=== PATIENT | female | born 1990 | race Hispanic/Latino ===

== ENCOUNTER 2024-07-17 06:03 | Emergency (ER) | payer OTHER, SELFPAY ==
--- OUTSIDE RECORDS SUMMARY | 2024-07-17 06:07 | XMS REPORT | Continuity of Care Document ---
Author Name Unknown Address [address] [facility] [address] [place] [address] [facility] [place] Address [address] [facility] [address] [place] [address] Care Team Providers Care Dolly Pusher Name Role Phone PCP, PATIENT DOES NOT HAVE A Primary Care Physic mike Unavailable REBEKAH OLIVEIRA Attending Clinician Unavailab MERRILL Tesfaye Attending Clinician Unavailable Nurse, [facility] Attending Clinician Un available Unknown, Attending Attending Clinician Unavailab le Doctor Unassigned, Turner Attending Clinician U CHAR Prescott Attending Clinician Unavail able Char Craft Attending Clinician + Payers Payer Name Policy Type Policy Number Effective Date Expirati on Date Source [facility] 2 [id number] 2024 00:00:00 [facility] [id number] 2022 00:00:00 Problems Condition Name Condition Details Condition Category Status Onset Date Resolution Date Last Treatment Date Treating Clinician Comments Source Presence of intrauteri ne contracept marjorie device Presence of intrauteri ne contracept marjorie device Disease Active 09-16 00:00: 00 [facility] Other general counseling and advice for contracept marjorie management Other general counseling and advice for contracept marjorie management Disease Active 09-16 00:00: 00 [facility] Presence of intrauteri ne contracept marjorie device Presence of intrauteri ne contracept marjorie device Disease Active 09-16 00:00: 00 [facility] Over weight Over weight Disease Active 09-16 00:00: 00 [facility] Allergies, Adverse Reactions, Alerts Allergy Name Allergy Type Status Severity Reaction(s) Onset Date Inactive Date Treating Clinician Comments Source NO KNOWN ALLERGIE S Drug Class Active [facility] Social History Social Habit Start Date Stop Date Quantity Comments Source History SDOH Alcohol Frequency [facility] History SDOH Alcohol Std Drinks [facility] History SDOH Alcohol Binge [facility] to SARS-CoV-2 (event) Not sure [facility] Alcohol intake 2020-09-23 00:00:00 2020-09-23 00:00:00 Current drinker of alcohol (finding) [facility] History of Social function 2020-09-16 00:00:00 2020-09-16 00:00:00 [facility] Tobacco use and exposure 2020-09-16 00:00:00 2020-09-16 00:00:00 Smokeless tobacco non-user [facility] Alcohol Comment 2020-09-16 00:00:00 2020-09-16 00:00:00 social [facility] Sex Assigned At 1990 00:00:00 1990 00:00:00 [facility] Smoking Status Start Date Stop Date Source Never smoked tobacco [facility] Medications Ordered Medication Name Filled Medication Name Start Date Stop Date Current Medication? Ordering Clinician Indication Dosage Frequency Signature (SIG) Comments Components Source phenazopyri dine 200 mg tablet 06-24 00:00: 00 Yes 1mg Garrywaqar Cross nitrofurant oin monohydrate /macrocryst als 100 mg capsule 06-24 00:00: 00 Yes 1mg Garry Cross Bromfed DM 2 mg-30 mg-10 mg/5 mL oral syrup 9-03 00:00: 00 Yes 10mg/5 mL Garry Cross Bromfed DM 2 mg-30 mg-10 mg/5 mL oral syrup 2024-0 8-30 00:00: 00 Yes 10mg/5 mL Garry Cross sertraline 25 mg tablet 6-26 00:00: 00 Yes 1mg Garry Cross Celexa 10 mg tablet 6-17 00:00: 00 Yes 1mg Garry Cross fluoxetine 40 mg capsule 5-01 00:00: 00 Yes 2mg Garry Cross fluoxetine 40 mg capsule 3-05 00:00: 00 Yes mg Garry Cross FLUOXETINE HCL 40 MG CAPSULE 2-27 00:00: 00 Yes Garry Cross TAKE 1 CAP DAILY WITH A 40 CAPSULE 1-22 00:00: 00 09-10 00:00 :00 No 20 Garry Cross TAKE 2 TABLETS ON DAY 1 THEN TAKE 1 TABLET A DAY FOR 4 DAYS. 1- 00:00: 00 09-10 00:00 :00 No 250 Garry rCoss FLUOXETINE HYDROCHLORI DE 40 MG 2022-05 2-12 00:00: 00 Yes Garry Cross TAKE 1 CAP DAILY WITH A 40 CAPSULE 2022-05 00:00: 00 09-10 00:00 :00 No 20 Garry Cross TAKE 1 TABLET FOR MIGRAINE RELIEF. MAY REPEAT EVERY 2 HOURS. MAX 200MG/DAY. 2022-05 00:00: 00 09-10 00:00 :00 No 50 Garry Cross TAKE 1 TABLET DAILY. 2022-05 00:00: 00 09-10 00:00 :00 No 10 Garry Cross TAKE 1 CAPSULE BY MOUTH ONCE DAILY 2022-05 0-20 00:00: 00 09-10 00:00 :00 No 40 Garry Cross TAKE 1 CAPSULE 3 TIMES DAILY NEEDED FOR ANXIETY. 2022-05 0-20 00:00: 00 09-10 00:00 :00 No 25 Garry Cross MOUNJARO 2.5 MG/0.5 ML PEN 9-18 00:00: 00 Yes Garry Cross MOUNJARO 2.5 MG/0.5ML SOPN 8-16 00:00: 00 Yes Garry Cross TAKE 1 CAPSULE BY MOUTH ONCE DAILY 11-29 00:00: 00 09-10 00:00 :00 No 40 Garry Cross TAKE 1 CAPSULE 3 TIMES DAILY NEEDED FOR ANXIETY. 11-29 00:00: 00 09-10 00:00 :00 No 25 Garry Cross TAKE 1 CAPSULE EVERY MORNING. 3 00:00: 00 09-10 00:00 :00 No 20 Garry Cross TAKE 1 CAPSULE EVERY MORNING. 3 00:00: 00 09-10 00:00 :00 No 20 Garry Cross TAKE 1 CAPSULE 3 TIMES DAILY NEEDED FOR ANXIETY. 07-07 00:00: 00 09-10 00:00 :00 No 25 Garry Cross TAKE 1 TABLET DAILY. 06-01 00:00: 00 09-10 00:00 :00 No 10 Garry Cross LEVONORGEST REL (MIRENA INTRAUTERIN E) 09-16 14:29: 27 Yes by Intrauteri ne route. [facility] LEVONORGEST REL (MIRENA INTRAUTERIN E) 09-16 09:29: 27 Yes by Intrauteri ne route. [facility] naproxen (NAPROSYN) 500 mg tablet 2015-05 00:00: 00 Yes 500mg Take 1 tablet by mouth 2 (two) times daily with meals. [facility] cyclobenzap rine (FLEXERIL) 10 mg tablet 2015-05 00:00: 00 Yes 10mg Take 1 tablet by mouth as needed for Muscle Spasms (AND PAIN TO MAX OF TID). [facility] acetaminoph en-codeine (TYLENOL #3) 300-30 mg tablet 2015-05 00:00: 00 Yes 1{tbl} Take 1 tablet by mouth every 4 (four) hours as needed for Pain unrelieved by non-narcot ic analgesics . [facility] naproxen sodium (ANAPROX) 550 mg tablet 02-04 00:00: 00 Yes 550mg Take 1 tablet by mouth 2 (two) times daily with meals. [facility] cyclobenzap rine (FLEXERIL) 5 mg tablet 02-04 00:00: 00 Yes 5mg Take 1 tablet by mouth 3 (three) times daily. [facility] cyclobenzap rine (FLEXERIL) 5 mg tablet 11-26 00:00: 00 Yes 5mg Take 1 tablet by mouth 3 (three) times daily. [facility] ranitidine (ZANTAC) 150 mg tablet 2014-05 00:00: 00 Yes 150mg Take 1 Tab by mouth 2 (two) times daily. [facility] Immunizations Ordered Immunization Name Filled Immunization Name Date Status Comments Source TDAP 2011-05-08 00:00:00 Completed [facility] TDAP 2011-05-08 00:00:00 Completed [facility] TDAP 2011-05-08 00:00:00 Completed [facility] TDAP 2011-05-08 00:00:00 Completed [facility] Rubella 2009-07-08 00:00:00 Completed [facility] Rubella 2009-07-08 00:00:00 Completed [facility] Rubella 2009-07-08 00:00:00 Completed [facility] Rubella 2009-07-08 00:00:00 Completed [facility] Rubella Unknown Completed [facility] TDAP Unknown Completed [facility] Rubella Unknown Completed [facility] TDAP Unknown Completed [facility] Vital Signs Vital Name Observation Time Observation Value Comments S braulio Systolic blood pressure 2023-03-05 16:58:00 124 mm[Hg] [facility] Diastolic blood pressure 2023-03-05 16:58:00 83 mm[Hg] [facility] Heart rate 2023-03-05 16:58:00 82 /min [facility] Body temperature 2023-03-05 16:58:00 36.83 Zita [facility] Respiratory rate 2023-03-05 16:58:00 15 /min [facility] Body height 2023-03-05 16:58:00 157.5 cm [facility] Body weight 2023-03-05 16:58:00 67.586 kg [facility] BMI 2023-03-05 16:58:00 27.25 kg/m2 [facility] Oxygen saturation in Arterial blood by Pulse oximetry 2023-03-05 16:58:00 99 /min [facility] Systolic blood pressure 2020-09-23 18:47:00 117 mm[Hg] [facility] Diastolic blood pressure 2020-09-23 18:47:00 78 mm[Hg] [facility] Heart rate 2020-09-23 18:47:00 97 /min [facility] Body temperature 2020-09-23 18:47:00 36.94 Zita [facility] Respiratory rate 2020-09-23 18:47:00 16 /min [facility] Body height 2020-09-23 18:47:00 152.4 cm [facility] Body weight 2020-09-23 18:47:00 68.238 kg [facility] BMI 2020-09-23 18:47:00 29.38 kg/m2 [facility] Systolic blood pressure 2020-09-16 14:19:00 124 mm[Hg] [facility] Diastolic blood pressure 2020-09-16 14:19:00 87 mm[Hg] [facility] Heart rate 2020-09-16 14:19:00 95 /min [facility] Body temperature 2020-09-16 14:19:00 36.94 Zita [facility] Respiratory rate 2020-09-16 14:19:00 16 /min [facility] Body height 2020-09-16 14:19:00 152.4 cm [facility] Body weight 2020-09-16 14:19:00 68.607 kg [facility] BMI 2020-09-16 14:19:00 29.54 kg/m2 [facility] BP Systolic 2024-06-24 11:31:00 128 mm[Hg] Step hen F Tay BP Diastolic 2024-06-24 11:31:00 88 mm[Hg] Dandy phen F Tay Weight Measured 2024-06-24 11:31:00 167.00 pounds Garry F Tay Height Measured 2024-06-24 11:31:00 60.00 inches Garry F Tay Body Temperature 2024-06-24 11:31:00 98.00 degrees Garry F Tay Heart Rate 2024-06-24 11:31:00 86.00 /min Yesi en F Tay Respiratory Rate 2024-06-24 11:31:00 18.00 /min Garry F Tay BP Systolic 2023-07-04 17:24:00 Step hen F Tay BP Diastolic 2023-07-04 17:24:00 Dandy phen F Tay Weight Measured 2023-07-04 17:24:00 Garry F Tay Height Measured 2023-07-04 17:24:00 Garry F Tay Body Temperature 2023-07-04 17:24:00 Garry F Tay Heart Rate 2023-07-04 17:24:00 Yesi en F Tay Respiratory Rate 2023-07-04 17:24:00 Garry F Tay BP Systolic 2023-07-01 13:43:00 145 mm[Hg] Step hen F Tay BP Diastolic 2023-07-01 13:43:00 99 mm[Hg] Dandy phen F Tay Weight Measured 2023-07-01 13:43:00 156.60 pounds Garry F Tay Height Measured 2023-07-01 13:43:00 60.00 inches Garry F Tay Body Temperature 2023-07-01 13:43:00 98.20 degrees Garry F Tay Heart Rate 2023-07-01 13:43:00 99.00 /min Yesi en F Tay Respiratory Rate 2023-07-01 13:43:00 20.00 /min Garry F Tay BP Systolic 2023-06-06 16:32:00 130 mm[Hg] Step hen F Tay BP Diastolic 2023-06-06 16:32:00 88 mm[Hg] Dandy phen F Tay Weight Measured 2023-06-06 16:32:00 155.00 pounds Garry F Tay Height Measured 2023-06-06 16:32:00 60.00 inches Garry F Tay Body Temperature 2023-06-06 16:32:00 98.20 degrees Garry F Tay Heart Rate 2023-06-06 16:32:00 77.00 /min Yesi en F Tay Respiratory Rate 2023-06-06 16:32:00 18.00 /min Garry F Tay BP Systolic 2023-05-29 18:19:00 Step hen F Tay BP Diastolic 2023-05-29 18:19:00 Dandy phen F Tay Weight Measured 2023-05-29 18:19:00 151.20 pounds Garry F Tay Height Measured 2023-05-29 18:19:00 60.00 inches Garry F Tay Body Temperature 2023-05-29 18:19:00 Garry F Tay Heart Rate 2023-05-29 18:19:00 Yesi en F Tay Respiratory Rate 2023-05-29 18:19:00 Garry F Tay BP Systolic 2023-05-09 16:33:00 114 mm[Hg] Step hen F Tay BP Diastolic 2023-05-09 16:33:00 77 mm[Hg] Dandy phen F Tay Weight Measured 2023-05-09 16:33:00 151.20 pounds Garry F Tay Height Measured 2023-05-09 16:33:00 60.00 inches Garry F Tay Body Temperature 2023-05-09 16:33:00 96.80 degrees Garry F Tay Heart Rate 2023-05-09 16:33:00 93.00 /min Yesi en F Tay Respiratory Rate 2023-05-09 16:33:00 Garry F Tay BP Systolic 2023-03-08 09:58:00 134 mm[Hg] Step hen F Tay BP Diastolic 2023-03-08 09:58:00 86 mm[Hg] Dandy phen F Tay Weight Measured 2023-03-08 09:58:00 151.00 pounds Garry F Tay Height Measured 2023-03-08 09:58:00 60.00 inches Garry F Tay Body Temperature 2023-03-08 09:58:00 98.20 degrees Garry F Tay Heart Rate 2023-03-08 09:58:00 80.00 /min Yesi en F Tay Respiratory Rate 2023-03-08 09:58:00 17.00 /min Garry F Tay BP Systolic 2023-02-24 18:17:00 Step hen F Tay BP Diastolic 2023-02-24 18:17:00 Dandy phen F Tay Weight Measured 2023-02-24 18:17:00 Garry Cross Height Measured 2023-02-24 18:17:00 Garry Cross Body Temperature 2023-02-24 18:17:00 Garry Cross Heart Rate 2023-02-24 18:17:00 Yesi Cross Respiratory Rate 2023-02-24 18:17:00 Garry Cross Procedures Procedure Date / Time Performed Performing Clinicia n Source ASSIGNMENT OF BENEFITS 2023-03-05 16:01:16 Docto r Unassigned, Turner [facility] [address] Ekg W/ At Least 12 Leads W/ I r 2022-06-01 00:00:00 Garry Cross POCT TEST 2020-09-16 14:22:00 Daniel Brewer [facility] Encounters Start Date/Time End Date/Time Encounter Type Admission Type Attending Rust Care Department Encounter ID Source 2024-06-24 11:20:34 2024-06-24 11:20:34 Outpatient SFA SFA [id number] Garry Cross 2024-06-24 00:00:00 2024-06-24 00:00:00 Outpatient Visit SFA [id number] Garry Cross 2024-02-07 11:00:00 2024-02-07 11:00:00 Outpatient REBEKAH OLIVEIRA [id number] Isabel Keyes 2024-01-09 00:00:00 2024-01-09 00:00:00 Outpatient Visit SFA [id number] Garry Cross 2024-01-06 11:07:40 2024-01-06 11:07:40 Outpatient SFA SFA [id number] Garry Cross 2024-01-05 20:35:49 2024-01-05 20:35:49 Outpatient SFA SFA [id number] Garry Cross 2024-01-05 00:00:00 2024-01-05 00:00:00 Outpatient Visit SFA [id number] Garry Cross 2023-11-01 14:14:17 2023-11-01 14:14:17 Outpatient SFA SFA [id number] Garry Cross 2023-10-23 00:00:00 2023-10-23 00:00:00 Outpatient Visit SFA [id number] Garry Cross 2023-09-06 14:13:23 2023-09-06 14:13:23 Outpatient SFA SFA [id number] Garry Cross 2023-09-06 00:00:00 2023-09-06 00:00:00 Outpatient Visit SFA [id number] Garry Cross 2023-07-04 17:23:54 2023-07-04 17:23:54 Outpatient SFA [id number] [id number] Garry Cross 2023-07-04 00:00:00 2023-07-04 00:00:00 Outpatient Visit SFA [id number] Garry Cross 2023-07-01 13:33:30 2023-07-01 13:33:30 Outpatient SFA SFA [id number] Garry Cross 2023-06-06 16:18:25 2023-06-06 16:18:25 Outpatient SFA SFA [id number] Garry Cross 2023-05-09 16:26:16 2023-05-09 16:26:16 Outpatient SFA SFA [id number] Garry Cross 2023-03-08 09:52:30 2023-03-08 09:52:30 Outpatient SFA SFA [id number] Garry Cross 2023-03-05 11:00:00 2023-03-05 11:20:41 Outpatient MERRILL ATWOOD [facility] [id number] [facility] 2023-03-05 11:00:00 2023-03-05 11:20:41 Nurse Visit Nurse, Srinivas [facility] Unknown, Attending [facility] [id number] [id number] [facility] 2023-03-05 00:00:00 2023-03-05 00:00:00 Orders Only Doctor Unassigned, Turner [facility] 1..114 [id number] [facility] 2023-02-24 18:16:58 2023-02-24 18:16:58 Outpatient SFA [facility] [id number] Garry Cross 2022-11-29 09:00:23 2022-11-29 09:00:23 Outpatient SFA [facility] [id number] Garry Cross 2022-10-11 14:45:00 2022-10-11 14:45:00 Outpatient R CHAR BREWER [facility] [id number] [facility] 2021-02-17 00:00:00 2021-02-17 00:00:[address] [facility] CONCRETING SUPERVISOR [email or web address]] .840.114 [id number] [facility] 2020-09-30 00:00:00 2020-09-30 00:00:00 Outpatient R CHAR BREWER [facility] [id number] [facility] 2020-09-28 13:15:00 2020-09-28 13:15:00 Outpatient R [facility] [id number] [facility] 2020-09-24 00:00:00 2020-09-24 00:00:00 Telephone Char Brewer [facility] CONCRETING SUPERVISOR [facility] [[email or web address]] .840.114 [id number] [facility] 2020-09-23 13:31:23 2020-09-23 14:46:46 Office Visit Char Brewer [facility] CONCRETING SUPERVISOR [facility] [[email or web address]] [id number] [facility] 2020-09-23 13:30:00 2020-09-23 13:30:00 Outpatient R CHAR BREWER [facility] [id number] [facility] 2020-09-16 09:12:50 2020-09-16 10:30:38 Office Visit Char Brewer [facility] CONCRETING SUPERVISOR [facility] [id number] [facility] 2020-09-16 09:00:00 2020-09-16 09:00:00 Outpatient R CHAR BREWER [facility] [id number] [facility] Results Test Description Test Time Test Comments Results Result Co mments Source TSH, THIRD [id number] 06:45:41* Test Item Value Reference Range Interpretation Comme [facility] TSH, THIRD GENERATION (test code = 2821) 1.590 UIU/ML 0.400-4.100 LIPID [id number] 06:15:21* Test Item Value Reference Range Interpretation Comme nts CHOLESTEROL (test code = 2210) 207 MG/DL <200 H TRIGLYCERIDES (test code = 2232) 110 MG/DL <150 HDL CHOLESTEROL (test code = 2220) 56 MG/DL >39 CALC LDL CHOL (test code = 2237) 129 MG/DL <100 H NOTE: CALCULATED LDL IS BASED ON CASTILLO-NG METHOD WHICHINCLUDES ADJUSTABLE TRIGLYCERIDE:VLDL CHOLESTEROL RATIO.THIS FACTOR VARIES BY MEASURED TRIGLYCERIDE AND NON-HDLCHOLESTEROL CONCENTRATIONS WITH INCREASED CALCULATED LDL SEENIN HIGHER TRIGLYCERIDE OR LOWER NON-HDL SPECIMENS. FOR MOREINFORMATION, SEE CLIENT ANNOUNCEMENT AT [email or web address] RISK RATIO LDL/HDL (test code = 223) 2.30 RATIO <3.22 COMPREHENSIVE METABOLIC [id number] 06:15:21* Test Item Value Reference Range Interpretation Comme nts GLUCOSE (test code = 2216) 96 MG/DL 70-99 BUN (test code = 2207) 9 MG/DL 6-20 CREATININE (test code = 2213) 0.67 MG/DL 0.60-1.30 eGFR (2020 CKD-EPI) (test code = ) 118 ML/MIN/1.73 >60 CALC BUN/CREAT (test code = 2234) 13 RATIO 6-28 SODIUM (test code = 2230) 138 MEQ/L 133-146 POTASSIUM (test code = 2227) 4.5 MEQ/L 3.5-5.4 CHLORIDE (test code = 2214) 100 MEQ/L 95-107 CARBON DIOXIDE (test code = 2205) 26 MEQ/L 19-31 CALCIUM (test code = 2208) 10.0 MG/DL 8.5-10.5 PROTEIN, TOTAL (test code = 2228) 7.6 G/DL 6.1-8.3 ALBUMIN (test code = 2200) 4.8 G/DL 3.5-5.2 CALC GLOBULIN (test code = 2240) 2.8 G/DL 1.9-3.7 CALC A/G RATIO (test code = 2233) 1.7 RATIO 1.0-2.6 BILIRUBIN, TOTAL (test code = 2206) 0.5 MG/DL <=1.2 ALKALINE PHOSPHATASE (test code = 2203) 77 U/L 40-114 AST (test code = 8) 24 U/L 9-40 ALT (test code = 2219) 24 U/L 5-40 CBC W/AUTO DIFF WITH [id number] 04:27:42* Test Item Value Reference Range Interpretation Comme nts WBC (test code = 1001) 7.3 K/UL 3.5-11.0 RBC (test code = 1002) 5.28 M/UL 3.80-5.40 HEMOGLOBIN (test code = 1003) 15.2 G/DL 11.5-15.5 HEMATOCRIT (test code = 1004) 46.4 % 34.0-45.0 H MCV (test code = 1005) 87.9 fL 80.0-99.0 MCH (test code = 1006) 28.8 PG 25.0-33.0 MCHC (test code = 1007) 32.8 G/DL 31.0-36.0 RDW (test code = 1038) 12.9 % 11.5-15.0 NEUTROPHILS (test code = 1008) 63.7 % LYMPHOCYTES (test code = 1010) 25.9 % MONOCYTES (test code = 1011) 8.2 % EOSINOPHILS (test code = 1012) 1.2 % BASOPHILS (test code = 1013) 0.7 % IMMATURE GRANULOCYTES (test code = 1036) 0.3 % NUCLEATED RBCS (test code = 1065) 0.0 /100 WBC'S See_Comment [Automated messa ge] The system which generated this result transmitted reference range: 0.0. The reference range was not used to interpret this result as normal/abnormal. PLATELET COUNT (test code = 1015) 404 K/UL 130-400 H ABSOLUTE NEUTROPHILS (test code = 1066) 4.66 K/UL 1.50-7.50 ABSOLUTE LYMPHOCYTES (test code = 1067) 1.89 K/UL 1.00-4.00 ABSOLUTE MONOCYTES (test code = 1068) 0.60 K/UL 0.20-1.00 ABSOLUTE EOSINOPHILS (test code = 1040) 0.09 K/UL 0.00-0.50 ABSOLUTE BASOPHILS (test code = 1069) 0.05 K/UL 0.00-0.20 ABS IMMATURE GRANULOCYTES (test code = 1020) 0.02 K/UL 0.00-0.10 ABS NUCLEATED RBCS (test code = 38886) 0.00 K/UL 0.00-0.11 LIPID [id number] 00:00:00* Test Item Value Reference Range Interpretation Comme nts CHOLESTEROL (test code = 2210) 207 MG/DL TRIGLYCERIDES (test code = 2232) 110 MG/DL HDL CHOLESTEROL (test code = 2220) 56 MG/DL CALC LDL CHOL (test code = 2237) 129 MG/DL RISK RATIO LDL/HDL (test cod e = 2238) 2.30 RATIO Garry F TayCOMPREHENSIVE METABOLIC [id number] 00:00:00* Test Item Value Reference Range Interpretation Comme nts GLUCOSE (test code = 2217) 96 MG/DL BUN (test code = 2207) 9 MG/DL CREATININE (test code = 2214) 0.67 MG/DL eGFR (2020 CKD-EPI) (test code = ) 118 ML/MIN/1.73 CALC BUN/CREAT (test code = 2235) 13 RATIO SODIUM (test code = 223) 138 MEQ/L POTASSIUM (test code = 2228) 4.5 MEQ/L CHLORIDE (test code = 2215) 100 MEQ/L CARBON DIOXIDE (test code = 2206) 26 MEQ/L CALCIUM (test code = 2209) 10.0 MG/DL PROTEIN, TOTAL (test code = 2228) 7.6 G/DL ALBUMIN (test code = 220) 4.8 G/DL CALC GLOBULIN (test code = 2240) 2.8 G/DL CALC A/G RATIO (test code = 2234) 1.7 RATIO BILIRUBIN, TOTAL (test code = 2206) 0.5 MG/DL ALKALINE PHOSPHATASE (test code = 2203) 77 U/L AST (test code = 8) 24 U/L ALT (test code = 2219) 24 U/L Garry CrossTSH, THIRD [id number] 00:00:00* Test Item Value Reference Range Interpretation Comme [facility] TSH, THIRD GENERATION (test code = 2821) 1.590 UIU/ML Garry Andrew TayVITAMIN D, 25 [id number] 00:00:00* Test Item Value Reference Range Interpretation Comme [facility] VITAMIN D, 25 OH (test code = 4958) 19 NG/ML Garry Morales TayCBC W/AUTO [id number] 00:00:00* Test Item Value Reference Range Interpretation Comme nts WBC (test code = 1001) 7.3 K/UL RBC (test code = 1002) 5.28 M/UL HEMOGLOBIN (test code = 1003) 15.2 G/DL HEMATOCRIT (test code = 1004) 46.4 % MCV (test code = 1005) 87.9 fL MCH (test code = 1006) 28.8 PG MCHC (test code = 1007) 32.8 G/DL RDW (test code = 1038) 12.9 % NEUTROPHILS (test code = 1008) 63.7 % LYMPHOCYTES (test code = 1010) 25.9 % MONOCYTES (test code = 1011) 8.2 % EOSINOPHILS (test code = 1012) 1.2 % BASOPHILS (test code = 1013) 0.7 % IMMATURE GRANULOCYTES (test code = 1036) 0.3 % NUCLEATED RBCS (test code = 1065) 0.0 /100WBC'S PLATELET COUNT (test code = 1015) 404 K/UL ABSOLUTE NEUTROPHILS (test c ode = 1066) 4.66 K/UL ABSOLUTE LYMPHOCYTES (test c ode = 1067) 1.89 K/UL ABSOLUTE MONOCYTES (test cod e = 1068) 0.60 K/UL ABSOLUTE EOSINOPHILS (test c ode = 1040) 0.09 K/UL ABSOLUTE BASOPHILS (test cod e = 1069) 0.05 K/UL ABS IMMATURE GRANULOCYTES (t est code = 1020) 0.02 K/UL ABS NUCLEATED RBCS (test cod e = 64658) 0.00 K/UL Garry Morales [place] [id number] 00:00:00* Test Item Value Reference Range Interpretation Comme nts CHOLESTEROL (test code = 2210) 207 MG/DL TRIGLYCERIDES (test code = 2232) 110 MG/DL HDL CHOLESTEROL (test code = 2220) 56 MG/DL CALC LDL CHOL (test code = 2237) 129 MG/DL RISK RATIO LDL/HDL (test cod e = 2238) 2.30 RATIO Garry CrossCOMPREHENSIVE METABOLIC [id number] 00:00:00* Test Item Value Reference Range Interpretation Comme nts GLUCOSE (test code = 2217) 96 MG/DL BUN (test code = 2208) 9 MG/DL CREATININE (test code = 2214) 0.67 MG/DL eGFR (2020 CKD-EPI) (test code = 36073) 118 ML/MIN/1.73 CALC BUN/CREAT (test code = 2235) 13 RATIO SODIUM (test code = 2231) 138 MEQ/L POTASSIUM (test code = 2228) 4.5 MEQ/L CHLORIDE (test code = 2215) 100 MEQ/L CARBON DIOXIDE (test code = 2206) 26 MEQ/L CALCIUM (test code = 2209) 10.0 MG/DL PROTEIN, TOTAL (test code = 2229) 7.6 G/DL ALBUMIN (test code = 2201) 4.8 G/DL CALC GLOBULIN (test code = 2240) 2.8 G/DL CALC A/G RATIO (test code = 2234) 1.7 RATIO BILIRUBIN, TOTAL (test code = 2207) 0.5 MG/DL ALKALINE PHOSPHATASE (test code = 2204) 77 U/L AST (test code = 2218) 24 U/L ALT (test code = 2219) 24 U/L Garry CrossTSH, THIRD [id number] 00:00:00* Test Item Value Reference Range Interpretation Comme [facility] TSH, THIRD GENERATION (test code = 2821) 1.590 UIU/ML Garry CrossVITAMIN D, 25 [id number] 00:00:00* Test Item Value Reference Range Interpretation Comme [facility] VITAMIN D, 25 OH (test code = 4958) 19 NG/ML Garry CrossCBC W/AUTO [id number] 00:00:00* Test Item Value Reference Range Interpretation Comme [facility] WBC (test code = 1001) 7.3 K/UL RBC (test code = 1002) 5.28 M/UL HEMOGLOBIN (test code = 1003) 15.2 G/DL HEMATOCRIT (test code = 1004) 46.4 % MCV (test code = 1005) 87.9 fL MCH (test code = 1006) 28.8 PG MCHC (test code = 1007) 32.8 G/DL RDW (test code = 1038) 12.9 % NEUTROPHILS (test code = 1008) 63.7 % LYMPHOCYTES (test code = 1010) 25.9 % MONOCYTES (test code = 1011) 8.2 % EOSINOPHILS (test code = 1012) 1.2 % BASOPHILS (test code = 1013) 0.7 % IMMATURE GRANULOCYTES (test code = 1036) 0.3 % NUCLEATED RBCS (test code = 1065) 0.0 /100WBC'S PLATELET COUNT (test code = 1015) 404 K/UL ABSOLUTE NEUTROPHILS (test c ode = 1066) 4.66 K/UL ABSOLUTE LYMPHOCYTES (test c ode = 1067) 1.89 K/UL ABSOLUTE MONOCYTES (test cod e = 1068) 0.60 K/UL ABSOLUTE EOSINOPHILS (test c ode = 1040) 0.09 K/UL ABSOLUTE BASOPHILS (test cod e = 1069) 0.05 K/UL ABS IMMATURE GRANULOCYTES (t est code = 1020) 0.02 K/UL ABS NUCLEATED RBCS (test cod e = 45686) 0.00 K/UL Garry CrossLIPID [id number] 00:00:00* Test Item Value Reference Range Interpretation Comme nts CHOLESTEROL (test code = 2210) 207 MG/DL TRIGLYCERIDES (test code = 2232) 110 MG/DL HDL CHOLESTEROL (test code = 2220) 56 MG/DL CALC LDL CHOL (test code = 2237) 129 MG/DL RISK RATIO LDL/HDL (test cod e = 2238) 2.30 RATIO Garry CrossCOMPREHENSIVE METABOLIC [id number] 00:00:00* Test Item Value Reference Range Interpretation Comme nts GLUCOSE (test code = 2217) 96 MG/DL BUN (test code = 2208) 9 MG/DL CREATININE (test code = 2214) 0.67 MG/DL eGFR (2020 CKD-EPI) (test code = 56351) 118 ML/MIN/1.73 CALC BUN/CREAT (test code = 2235) 13 RATIO SODIUM (test code = 2231) 138 MEQ/L POTASSIUM (test code = 2228) 4.5 MEQ/L CHLORIDE (test code = 2215) 100 MEQ/L CARBON DIOXIDE (test code = 2206) 26 MEQ/L CALCIUM (test code = 2209) 10.0 MG/DL PROTEIN, TOTAL (test code = 2229) 7.6 G/DL ALBUMIN (test code = 2201) 4.8 G/DL CALC GLOBULIN (test code = 2240) 2.8 G/DL CALC A/G RATIO (test code = 2234) 1.7 RATIO BILIRUBIN, TOTAL (test code = 2207) 0.5 MG/DL ALKALINE PHOSPHATASE (test code = 2204) 77 U/L AST (test code = 2218) 24 U/L ALT (test code = 2219) 24 U/L Garry CrossTSH, THIRD [id number] 00:00:00* Test Item Value Reference Range Interpretation Comme nts TSH, THIRD GENERATION (test code = 2821) 1.590 UIU/ML Garry CrossVITAMIN D, 25 [id number] 00:00:00* Test Item Value Reference Range Interpretation Comme nts VITAMIN D, 25 OH (test code = 4958) 19 NG/ML Garry CrossCBC W/AUTO [id number] 00:00:00* Test Item Value Reference Range Interpretation Comme nts WBC (test code = 1001) 7.3 K/UL RBC (test code = 1002) 5.28 M/UL HEMOGLOBIN (test code = 1003) 15.2 G/DL HEMATOCRIT (test code = 1004) 46.4 % MCV (test code = 1005) 87.9 fL MCH (test code = 1006) 28.8 PG MCHC (test code = 1007) 32.8 G/DL RDW (test code = 1038) 12.9 % NEUTROPHILS (test code = 1008) 63.7 % LYMPHOCYTES (test code = 1010) 25.9 % MONOCYTES (test code = 1011) 8.2 % EOSINOPHILS (test code = 1012) 1.2 % BASOPHILS (test code = 1013) 0.7 % IMMATURE GRANULOCYTES (test code = 1036) 0.3 % NUCLEATED RBCS (test code = 1065) 0.0 /100WBC'S PLATELET COUNT (test code = 1015) 404 K/UL ABSOLUTE NEUTROPHILS (test c ode = 1066) 4.66 K/UL ABSOLUTE LYMPHOCYTES (test c ode = 1067) 1.89 K/UL ABSOLUTE MONOCYTES (test cod e = 1068) 0.60 K/UL ABSOLUTE EOSINOPHILS (test c ode = 1040) 0.09 K/UL ABSOLUTE BASOPHILS (test cod e = 1069) 0.05 K/UL ABS IMMATURE GRANULOCYTES (t est code = 1020) 0.02 K/UL ABS NUCLEATED RBCS (test cod e = 20531) 0.00 K/UL Garry CrossLIPID [id number] 00:00:00* Test Item Value Reference Range Interpretation Comme nts CHOLESTEROL (test code = 2210) 207 MG/DL TRIGLYCERIDES (test code = 2232) 110 MG/DL HDL CHOLESTEROL (test code = 2220) 56 MG/DL CALC LDL CHOL (test code = 2237) 129 MG/DL RISK RATIO LDL/HDL (test cod e = 2238) 2.30 RATIO Garry CrossCOMPREHENSIVE METABOLIC [id number] 00:00:00* Test Item Value Reference Range Interpretation Comme nts GLUCOSE (test code = 7) 96 MG/DL BUN (test code = 8) 9 MG/DL CREATININE (test code = 2214) 0.67 MG/DL eGFR (2020 CKD-EPI) (test code = ) 118 ML/MIN/1.73 CALC BUN/CREAT (test code = 2235) 13 RATIO SODIUM (test code = 2231) 138 MEQ/L POTASSIUM (test code = 2228) 4.5 MEQ/L CHLORIDE (test code = 2215) 100 MEQ/L CARBON DIOXIDE (test code = 2206) 26 MEQ/L CALCIUM (test code = 2209) 10.0 MG/DL PROTEIN, TOTAL (test code = 222) 7.6 G/DL ALBUMIN (test code = 2201) 4.8 G/DL CALC GLOBULIN (test code = 2240) 2.8 G/DL CALC A/G RATIO (test code = 2234) 1.7 RATIO BILIRUBIN, TOTAL (test code = 2206) 0.5 MG/DL ALKALINE PHOSPHATASE (test code = 2203) 77 U/L AST (test code = 8) 24 U/L ALT (test code = 2219) 24 U/L Garry CrossTSH, THIRD [id number] 00:00:00* Test Item Value Reference Range Interpretation Comme [facility] TSH, THIRD GENERATION (test code = 2821) 1.590 UIU/ML Garry CrossVITAMIN D, 25 [id number] 00:00:00* Test Item Value Reference Range Interpretation Comme [facility] VITAMIN D, 25 OH (test code = 4958) 19 NG/ML Garry Andrew TayCBC W/AUTO [id number] 00:00:00* Test Item Value Reference Range Interpretation Comme [facility] WBC (test code = 1001) 7.3 K/UL RBC (test code = 1002) 5.28 M/UL HEMOGLOBIN (test code = 1003) 15.2 G/DL HEMATOCRIT (test code = 1004) 46.4 % MCV (test code = 1005) 87.9 fL MCH (test code = 1006) 28.8 PG MCHC (test code = 1007) 32.8 G/DL RDW (test code = 1038) 12.9 % NEUTROPHILS (test code = 1008) 63.7 % LYMPHOCYTES (test code = 1010) 25.9 % MONOCYTES (test code = 1011) 8.2 % EOSINOPHILS (test code = 1012) 1.2 % BASOPHILS (test code = 1013) 0.7 % IMMATURE GRANULOCYTES (test code = 1036) 0.3 % NUCLEATED RBCS (test code = 1065) 0.0 /100WBC'S PLATELET COUNT (test code = 1015) 404 K/UL ABSOLUTE NEUTROPHILS (test c ode = 1066) 4.66 K/UL ABSOLUTE LYMPHOCYTES (test c ode = 1067) 1.89 K/UL ABSOLUTE MONOCYTES (test cod e = 1068) 0.60 K/UL ABSOLUTE EOSINOPHILS (test c ode = 1040) 0.09 K/UL ABSOLUTE BASOPHILS (test cod e = 1069) 0.05 K/UL ABS IMMATURE GRANULOCYTES (t est code = 1020) 0.02 K/UL ABS NUCLEATED RBCS (test cod e = 40618) 0.00 K/UL Garry Morales AustinLIPID [id number] 00:00:00* Test Item Value Reference Range Interpretation Comme nts CHOLESTEROL (test code = 2210) 207 MG/DL TRIGLYCERIDES (test code = 2232) 110 MG/DL HDL CHOLESTEROL (test code = 2220) 56 MG/DL CALC LDL CHOL (test code = 2237) 129 MG/DL RISK RATIO LDL/HDL (test cod e = 2238) 2.30 RATIO Garry CrossCOMPREHENSIVE METABOLIC [id number] 00:00:00* Test Item Value Reference Range Interpretation Comme nts GLUCOSE (test code = 2217) 96 MG/DL BUN (test code = 2208) 9 MG/DL CREATININE (test code = 2214) 0.67 MG/DL eGFR (2020 CKD-EPI) (test code = 27157) 118 ML/MIN/1.73 CALC BUN/CREAT (test code = 2235) 13 RATIO SODIUM (test code = 2231) 138 MEQ/L POTASSIUM (test code = 2228) 4.5 MEQ/L CHLORIDE (test code = 2215) 100 MEQ/L CARBON DIOXIDE (test code = 2206) 26 MEQ/L CALCIUM (test code = 2209) 10.0 MG/DL PROTEIN, TOTAL (test code = 2229) 7.6 G/DL ALBUMIN (test code = 2201) 4.8 G/DL CALC GLOBULIN (test code = 2240) 2.8 G/DL CALC A/G RATIO (test code = 2234) 1.7 RATIO BILIRUBIN, TOTAL (test code = 2207) 0.5 MG/DL ALKALINE PHOSPHATASE (test code = 2204) 77 U/L AST (test code = 2218) 24 U/L ALT (test code = 2219) 24 U/L Garry CrossTSH, THIRD [id number] 00:00:00* Test Item Value Reference Range Interpretation Comme nts TSH, THIRD GENERATION (test code = 2821) 1.590 UIU/ML Garry CrossVITAMIN D, 25 [id number] 00:00:00* Test Item Value Reference Range Interpretation Comme [facility] VITAMIN D, 25 OH (test code = 4958) 19 NG/ML Garry CrossCBC W/AUTO [id number] 00:00:00* Test Item Value Reference Range Interpretation Comme nts WBC (test code = 1001) 7.3 K/UL RBC (test code = 1002) 5.28 M/UL HEMOGLOBIN (test code = 1003) 15.2 G/DL HEMATOCRIT (test code = 1004) 46.4 % MCV (test code = 1005) 87.9 fL MCH (test code = 1006) 28.8 PG MCHC (test code = 1007) 32.8 G/DL RDW (test code = 1038) 12.9 % NEUTROPHILS (test code = 1008) 63.7 % LYMPHOCYTES (test code = 1010) 25.9 % MONOCYTES (test code = 1011) 8.2 % EOSINOPHILS (test code = 1012) 1.2 % BASOPHILS (test code = 1013) 0.7 % IMMATURE GRANULOCYTES (test code = 1036) 0.3 % NUCLEATED RBCS (test code = 1065) 0.0 /100WBC'S PLATELET COUNT (test code = 1015) 404 K/UL ABSOLUTE NEUTROPHILS (test c ode = 1066) 4.66 K/UL ABSOLUTE LYMPHOCYTES (test c ode = 1067) 1.89 K/UL ABSOLUTE MONOCYTES (test cod e = 1068) 0.60 K/UL ABSOLUTE EOSINOPHILS (test c ode = 1040) 0.09 K/UL ABSOLUTE BASOPHILS (test cod e = 1069) 0.05 K/UL ABS IMMATURE GRANULOCYTES (t est code = 1020) 0.02 K/UL ABS NUCLEATED RBCS (test cod e = 88056) 0.00 K/UL Garry CrossLIPID [id number] 00:00:00* Test Item Value Reference Range Interpretation Comme nts CHOLESTEROL (test code = 2210) 207 MG/DL TRIGLYCERIDES (test code = 2232) 110 MG/DL HDL CHOLESTEROL (test code = 2220) 56 MG/DL CALC LDL CHOL (test code = 2237) 129 MG/DL RISK RATIO LDL/HDL (test cod e = 2238) 2.30 RATIO Garry CrossCOMPREHENSIVE METABOLIC [id number] 00:00:00* Test Item Value Reference Range Interpretation Comme nts GLUCOSE (test code = 2217) 96 MG/DL BUN (test code = 2208) 9 MG/DL CREATININE (test code = 2214) 0.67 MG/DL eGFR (2020 CKD-EPI) (test code = 40832) 118 ML/MIN/1.73 CALC BUN/CREAT (test code = 2235) 13 RATIO SODIUM (test code = 2231) 138 MEQ/L POTASSIUM (test code = 2228) 4.5 MEQ/L CHLORIDE (test code = 2215) 100 MEQ/L CARBON DIOXIDE (test code = 2206) 26 MEQ/L CALCIUM (test code = 2209) 10.0 MG/DL PROTEIN, TOTAL (test code = 2229) 7.6 G/DL ALBUMIN (test code = 2201) 4.8 G/DL CALC GLOBULIN (test code = 2240) 2.8 G/DL CALC A/G RATIO (test code = 2234) 1.7 RATIO BILIRUBIN, TOTAL (test code = 2207) 0.5 MG/DL ALKALINE PHOSPHATASE (test code = 2204) 77 U/L AST (test code = 2218) 24 U/L ALT (test code = 2219) 24 U/L Garry CrossTSH, THIRD [id number] 00:00:00* Test Item Value Reference Range Interpretation Comme [facility] TSH, THIRD GENERATION (test code = 2821) 1.590 UIU/ML Garry CrossVITAMIN D, 25 [id number] 00:00:00* Test Item Value Reference Range Interpretation Comme nts VITAMIN D, 25 OH (test code = 4958) 19 NG/ML Garry CrossCBC W/AUTO [id number] 00:00:00* Test Item Value Reference Range Interpretation Comme nts WBC (test code = 1001) 7.3 K/UL RBC (test code = 1002) 5.28 M/UL HEMOGLOBIN (test code = 1003) 15.2 G/DL HEMATOCRIT (test code = 1004) 46.4 % MCV (test code = 1005) 87.9 fL MCH (test code = 1006) 28.8 PG MCHC (test code = 1007) 32.8 G/DL RDW (test code = 1038) 12.9 % NEUTROPHILS (test code = 1008) 63.7 % LYMPHOCYTES (test code = 1010) 25.9 % MONOCYTES (test code = 1011) 8.2 % EOSINOPHILS (test code = 1012) 1.2 % BASOPHILS (test code = 1013) 0.7 % IMMATURE GRANULOCYTES (test code = 1036) 0.3 % NUCLEATED RBCS (test code = 1065) 0.0 /100WBC'S PLATELET COUNT (test code = 1015) 404 K/UL ABSOLUTE NEUTROPHILS (test c ode = 1066) 4.66 K/UL ABSOLUTE LYMPHOCYTES (test c ode = 1067) 1.89 K/UL ABSOLUTE MONOCYTES (test cod e = 1068) 0.60 K/UL ABSOLUTE EOSINOPHILS (test c ode = 1040) 0.09 K/UL ABSOLUTE BASOPHILS (test cod e = 1069) 0.05 K/UL ABS IMMATURE GRANULOCYTES (t est code = 1020) 0.02 K/UL ABS NUCLEATED RBCS (test cod e = 50361) 0.00 K/UL Garry CrossPOCT [id number] 14:23:00* Test Item Value Reference Range Interpretation Comme nts POCT PREG (test code = 1605) Negative On board controls acceptable with C Line (test code = 3574) Yes POCT PREG LOT # (test code = 3575) POCT PREG TEST DATE ( test code = 3576) [id number] 14:23:00* Test Item Value Reference Range Interpretation Comme nts POCT PREG (test code = 1605) Negative On board controls acceptable with C Line (test code = 3574) Yes POCT PREG LOT # (test code = 3575) POCT PREG TEST DATE ( test code = 3576) [facility] [id number] 14:23:00* Test Item Value Reference Range Interpretation Comme nts POCT PREG (test code = 1605) Negative On board controls acceptable with C Line (test code = 3574) Yes POCT PREG LOT # (test code = 3575) POCT PREG TEST DATE ( test code = 3576) [facility] [id number] 14:23:00* Test Item Value Reference Range Interpretation Comme nts POCT PREG (test code = 1605) Negative On board controls acceptable with C Line (test code = 3574) Yes POCT PREG LOT # (test code = 3575) POCT PREG TEST DATE ( test code = 3576) [facility] [id number] 14:23:00* Test Item Value Reference Range Interpretation Comme nts POCT PREG (test code = 1605) Negative On board controls acceptable with C Line (test code = 3574) Yes POCT PREG LOT # (test code = 3575) POCT PREG TEST DATE ( test code = 3576) [facility] Notes Date/Time Note Provider Source [facility]2024-09-03 00:00:00 [facility]2024-08-30 00:00:00 [facility]2024-06-17 00:00:00 [facility]2024-05-01 00:00:00 [facility]2024-02-27 00:00:00 [facility]
[2024-07-17] MEDS ORDERED: HYDROCODONE/APAP 5/325 MG TAB ONE (07:17)
[2024-07-17] MEDS ORDERED: IBUPROFEN 400 MG TAB ONE (07:17)
--- NOTE | 2024-07-17 07:45 | RAD REPORT ---
EXAMINATION: ONE VIEW CHEST XR CLINICAL INDICATION: back/mid scapular pain TECHNIQUE: Frontal chest projection is submitted. Examination is limited by patient positioning and t echnique. COMPARISON: No prior exam. FINDINGS: The lungs are well inflated and clear. The heart is normal in size. No displaced fractures identified . IMPRESSION: No acute intrathoracic abnormalities.
[2024-07-17] MEDS ORDERED: ALPRAZOLAM 0.5 MG TABLET ONE (08:21)
[2024-07-17 08:31] LABS: Specific Gravity 1.018 (1.005-1.030); Transitional Epithelial <5 /HPF (None Seen); Urine Bacteria None Seen /HPF (<20); Urine Bilirubin NEGATIVE (Negative); Urine Blood Negative (Negative); Urine Clarity Extremely Turbid (Clear); Urine Color Yellow (Yellow); Urine Culture Reflex Order NOT NEEDED; Urine Glucose NEGATIVE (Negative); Urine Ketones NEGATIVE (Negative); Urine Microscopic Reflex YN ORDER UMIC; Urine Mucus Slight /HPF (None Seen); Urine Nitrite NEGATIVE (Negative); Urine Protein NEGATIVE (Negative); Urine RBC <5 /HPF (None Seen); Urine Urobilinogen 2+ (Normal); Urine WBC <5 /HPF (<5)
[2024-07-17 08:47] LABS: Absolute Eosinophils 0.1 K/uL (0-0.5); Absolute Lymphocytes (CBC) 1.4 K/uL (0.7-4.9); Absolute Monocytes 0.5 K/uL (0.1-1.3); Absolute Neutrophil 7.4 K/uL (1.8-8.0); Basophils % 0.5 % (0-1.3); Hematocrit 53.8 % (36.0-45.0); Hemoglobin 17.5 g/dL (12.0-15.0); Lymphocytes % 15.1 % (15.3-44.8); MCH 30.2 pg (27.0-35.0); MCHC 32.5 g/dL (32.0-36.0); MCV 92.9 fL (80-100); MPV 8.1 fL (7.6-11.3); Monocytes % 5.7 % (3.3-12.3); Neutrophils % 77.7 % (41.7-73.7); Nucleated Red Blood Cells % 0.1 % (0-0); Platelets 301 thou/uL (152-406); RBC Red Blood Cell Count 5.79 M/uL (3.86-4.86)
[2024-07-17 09:16] LABS: Albumin 3.9 g/dL (3.4-5.0); Anion Gap 9.4 mEq/L (5.0-15.0); Bilirubin Direct 0.4 mg/dL (0-0.2); Bilirubin Indirect, Calculated 1.1 mg/dL (0.2-0.8); Bilirubin Total 1.5 mg/dL (0.2-1.0); Globulin 4.1 g/dL (2.3-3.5); Potassium 3.4 mEq/L (3.5-5.1); Troponin High Sensitivity 6.6 pg/mL (<58.9)
--- NOTE | 2024-07-17 09:18 | RAD REPORT ---
EXAMINATION: CT ABDOMEN AND PELVIS WITH CONTRAST CLINICAL INDICATION: back pain, UTI TECHNIQUE: CT abdomen and pelvis was performed, after the administration of IV contrast, as per [facility] protocol. Axial, sagittal and coronal reconstructions were obtained. One or more of the following dose reduction techniques were used: Automated exposure control, adjustment of the mA and k V according to patient size, and iterative reconstruction. Unless otherwise specified, incidental findings do not require dedicated imaging follow-up. COMPARISON: No prior exam. FINDINGS: LOWER CHEST: The visualized lung bases are clear. LIVER: Mild fatty liver is present. No focal lesion or biliary dilatation is seen. Grossly unremark able gallbladder. SPLEEN: Normal size. No focal lesion. PANCREAS: No mass, ductal dilation, or jeison-pancreatic fluid. ADRENALS: Normal; no mass. KIDNEYS: Normal size and contour. No hydronephrosis. GASTROINTESTINAL TRACT: No evidence of free air, significant intra-abdominal free fluid, bowel obstru ction or abscess. APPENDIX: Normal appendix. LYMPH NODES: No lymphadenopathy. MUSCULOSKELETAL: Mild lower lumbar disc bulging. ADDITIONAL FINDINGS: 2 cm left ovarian follicle. IUD noted. IMPRESSION: No acute or concerning abnormalities seen in the abdomen or pelvis.
--- NOTE | 2024-07-17 09:52 | RAD REPORT ---
EXAM: Right upper quadrant ultrasound. CLINICAL HISTORY: abnl lfts COMPARISON: None. FINDINGS: Gallbladder: Normal. Bile ducts: No intrahepatic or extrahepatic biliary dilatation. Common bile duct measures 2 mm. Limited imaging of the liver shows mild fatty infiltration. IMPRESSION: Negative gallbladder/biliary tree findings. Mild fatty liver.
--- NOTE | 2024-07-17 10:02 | ER ---
Nurse's Notes [facility] Name: Maryellen Hernández Age: 34 yrs Sex: Female : 1990 Arrival Date: 07/17/2024 Time: 06:03 Bed 15 Private MD: Diagnosis: Back pain;Anxiety disorder, unspecified;Fatty (change of) liver, not elsewhere classified Presentation: 07/17 06:28 Chief complaint: Patient states: lower back pain that has radiated to upper back br2 between shoulder blades. Pt states she has been under a lot of stress lately, unable to sleep. Coronavirus screen: Client denies travel out of the [place] in the last 14 days. Ebola Screen: Patient denies exposure to infectious person. Initial Sepsis Screen: Does the patient meet any 2 criteria? No. Patient's initial sepsis screen is negative. Does the patient have a suspected source of infection? No. Patient's initial sepsis screen is negative. Risk Assessment: Do you want to hurt yourself or someone else? Patient reports no desire to harm self or others. Onset of symptoms was July 16, 2024 at 22:00. 06:28 Method Of Arrival: Ambulatory br2 06:28 Acuity: DOM 3 br2 Triage Assessment: 06:31 General: Appears uncomfortable, Behavior is cooperative, anxious. Pain: Complains of br2 pain in thoracic area, lumbar area, left low back and right low back Pain currently is 6 out of 10 on a pain scale. Historical: - Allergies: 06:31 No Known Allergies; br2 - PSHx: 06:31 section; br2 - Immunization history:: Adult Immunizations not up to date. - Infectious Disease History:: Denies. - Social history:: Smoking status: Patient denies any tobacco usage or history of. Patient uses alcohol, occasionally. - Family history:: not pertinent. - Hospitalizations: : No recent hospitalization is reported. Screenin:48 [facility] ED Fall Risk Assessment (Adult) History of falling in the last 3 months, kd4 including since admission No falls in past 3 months (0 pts) Confusion or Disorientation No (0 pts) Intoxicated or Sedated No (0 pts) Impaired Gait No (0 pts) Mobility Assist Device Used No (0 pt) Altered Elimination No (0 pt) Score/Fall Risk Level 0 - 2 = Low Risk Oriented to surroundings. Abuse screen: Denies threats or abuse. Nutritional screening: No deficits noted. Tuberculosis screening: No symptoms or risk factors identified. Assessment: 06:48 Neuro: No deficits noted. Level of Consciousness is awake, alert, obeys commands, kd4 Oriented to person, place, time, situation, Appropriate for age. 06:50 General: Patient report feeling anxious and have history of bad anxiety. C/o of back kd4 pain that started yesterday.. 08:40 Reassessment: Patient appears in no apparent distress at this time. Patient and/or db family updated on plan of care and expected duration. Pain level reassessed. Patient is alert, oriented x 3, equal unlabored respirations, skin warm/dry/pink. General: Appears in no apparent distress. Behavior is cooperative, anxious. Respiratory: Airway is patent Respiratory effort is even, unlabored, Respiratory pattern is regular, symmetrical. 10:40 Reassessment: Patient appears in no apparent distress at this time. Patient and/or db family updated on plan of care and expected duration. Pain level reassessed. Patient is alert, oriented x 3, equal unlabored respirations, skin warm/dry/pink. Patient states feeling better. Patient states symptoms have improved. Vital Signs: 06:28 BP 143 / 108; Pulse 111; Resp 18 S; Temp 97.2; Pulse Ox 99% on R/A; Weight 77.11 kg; br2 Height 5 ft. 0 in. ; Pain 6/10; 08:23 BP 157 / 99; Pulse 95; Resp 18; Pulse Ox 100% on R/A; db 10:40 BP 171 / 91; Pulse 90; Resp 18; Pulse Ox 99% on R/A; db 06:28 Body Mass Index 33.20 (77.11 kg, 152.4 cm) br2 06:28 Pain Scale: Adult br2 Ballantine Coma Score: 06:48 Eye Response: spontaneous(4). Motor Response: obeys commands(6). Verbal Response: kd4 oriented(5). Total: 15. ED Course: 06:05 Patient arrived in ED. jj6 06:31 Triage completed. br2 06:31 Arm band placed on right wrist. br2 06:41 Mariia Simon, RN is Primary Nurse. kd4 06:48 Patient has correct armband on for positive identification. kd4 06:58 Kam Prajapati MD is Attending Physician. rn 07:25 Initial lab(s) drawn, by me, sent to lab. Missed attempt(s): 20 gauge in right db antecubital area. Bleeding controlled, band aid applied, catheter tip intact. 07:39 XRAY Chest (1 view) In Process Unspecified. EDMS 08:35 Lab(s) recollected, by me, sent to lab. EKG done. Inserted saline lock: 22 gauge in db left antecubital area, using aseptic technique. Blood collected. Flushed with 10 mL NS. 09:04 CT Abd/Pelvis - IV Contrast Only In Process Unspecified. EDMS 09:46 US Abdomen Limited In Process Unspecified. EDMS 10:40 Provided Education on: DISCHARGE. Client placed on continuous cardiac and pulse db oximetry monitoring. NIBP monitoring applied. slurry control tender on. Pulse ox on. NIBP on. Pillow given. 10:40 IV discontinued, intact, bleeding controlled, No redness/swelling at site. db 10:57 No provider procedures requiring assistance completed. db Administered Medications: 07:19 Drug: HYDROcodone-acetaminophen PO 5 mg-325 mg 1 tabs PO once Route: PO; db 10:42 Follow up: Response: No adverse reaction db 07:19 Drug: Ibuprofen PO 800 mg PO once Route: PO; db 10:42 Follow up: Response: No adverse reaction db 08:25 Drug: ALPRAZolam PO Tablet 0.5 mg PO once Route: PO; db 10:42 Follow up: Response: No adverse reaction db Medication: 10:40 VIS not applicable for this client. db Outcome: 10:02 Discharge ordered by . rn 10:40 Discharged to home ambulatory, db 10:40 Condition: stable 10:40 Discharge instructions given to patient, Instructed on discharge instructions, follow up and referral plans. Prescriptions given X 1, 10:59 Patient left the ED. db Signatures: Dispatcher [employer] EDMS Kam Prajapati MD MD rn Jeffries, Jennifer jj6 Demetria Frank RN RN db Mariia Simon RN RN kd4 Kyra Howard, RN RN br2 Corrections: (The following items were deleted from the chart) 10:58 10:40 Assist provider with bone marrow aspiration db db
--- NOTE | 2024-07-17 10:02 | EDPHYS ---
Physician Documentation [facility] Name: Maryellen Hernández Age: 34 yrs Sex: Female : 1990 Arrival Date: 07/17/2024 Time: 06:03 Bed 15 Private MD: ED Physician Kam Prajapati HPI: 07/17 07:16 This 34 yrs old Female presents to ER via Ambulatory with complaints of back rn pain. 07:17 The patient presents with pain that is acute, with no known mechanism of injury. The rn symptoms are located in the thoracic area, left mid back and right mid back. 07:17 Onset: The symptoms/episode began/occurred yesterday. The pain does not radiate. rn Associated signs and symptoms: Pertinent positives: nausea, Pertinent negatives: abdominal pain, chest pain, fever, hematuria, incontinence, numbness, urinary retention, vomiting, weakness. Modifying factors: The patient symptoms are alleviated by nothing, the patient symptoms are aggravated by nothing. The patient has not experienced similar symptoms in the past. The patient has been recently seen by a physician:. Patient reports mid and upper back pain, over the last couple of days, being treated with second round of antibiotics for urinary tract infection. Denies any trauma or injury. No chest pain or shortness of breath. No cough or hemoptysis. No history of DVT or PE. Patient reports a lot of stress and anxiety lately, unable to sleep.. Historical: - Allergies: 06:31 No Known Allergies; br2 - PSHx: 06:31 section; br2 - Immunization history:: Adult Immunizations not up to date. - Infectious Disease History:: Denies. - Social history:: Smoking status: Patient denies any tobacco usage or history of. Patient uses alcohol, occasionally. - Family history:: not pertinent. - Hospitalizations: : No recent hospitalization is reported. ROS: 07:17 Constitutional: Negative for fever, chills, and weight loss, Cardiovascular: Negative rn for chest pain, palpitations, and edema, Respiratory: Negative for shortness of breath, cough, wheezing, and pleuritic chest pain, Abdomen/GI: Negative for abdominal pain, positive for nausea Back: Positive for back pain : Negative for injury, bleeding, discharge, and swelling, MS/Extremity: Negative for injury and deformity, Neuro: Negative for headache, weakness, numbness, tingling, and seizure, Exam: 07:17 Constitutional: This is a well developed, well nourished patient who is awake, alert, rn anxious, pacing around room Head/Face: Normocephalic, atraumatic. Cardiovascular: Tachycardic, regular Respiratory: No increased work of breathing, no retractions or nasal flaring. Abdomen/GI: Soft, non-tender Back: No spinal tenderness. No CVA tenderness Neuro: Awake and alert, GCS 15 Vital Signs: 06:28 BP 143 / 108; Pulse 111; Resp 18 S; Temp 97.2; Pulse Ox 99% on R/A; Weight 77.11 kg; br2 Height 5 ft. 0 in. ; Pain 6/10; 08:23 BP 157 / 99; Pulse 95; Resp 18; Pulse Ox 100% on R/A; db 10:40 BP 171 / 91; Pulse 90; Resp 18; Pulse Ox 99% on R/A; db 06:28 Body Mass Index 33.20 (77.11 kg, 152.4 cm) br2 06:28 Pain Scale: Adult br2 Tignall Coma Score: 06:48 Eye Response: spontaneous(4). Motor Response: obeys commands(6). Verbal Response: kd4 oriented(5). Total: 15. MDM: 06:58 Medical Screening Exam initiated rn 09:59 Differential diagnosis: Back pain, muscle spasm, tension, pyelonephritis, urinary tract rn infection, cholecystitis. Data reviewed: vital signs, nurses notes, lab test result(s), radiologic studies, CT scan, ultrasound, and as a result, I will discharge patient. Counseling: I had a detailed discussion with the patient and/or guardian regarding the historical points, exam findings, and any diagnostic results supporting the discharge/admit diagnosis, lab results, radiology results, the need for outpatient follow up, to return to the emergency department if symptoms worsen or persist or if there are any questions or concerns that arise at home. Response to treatment: the patient's symptoms have mildly improved after treatment, and as a result, I will discharge patient. Special discussion: I discussed with the patient/guardian in detail that at this point there is no indication for admission to the hospital. It is understood, however, that if the symptoms persist or worsen the patient needs to return immediately for re-evaluation. ED course: No acute findings and workup. Evaluation shows fatty liver but no acute findings and CT abdomen pelvis, specifically no pyelonephritis or lower lung problems. Ultrasound negative for cholecystitis or acute biliary abnormalities. Will discharge home with return precautions. I have personally reviewed all of the results, including but not limited to blood tests and imaging deemed necessary to safely discharge this patient at this time. All results given to and printed out for patient. I personally went over all the results with the patient and answered all questions. Patient will follow-up with PCP and or specialist as discussed. Return precautions given and understood.. 07/17 07:07 Order name: Basic Metabolic Panel; Complete Time: 09:20 rn 07/17 07:07 Order name: CBC with Diff; Complete Time: 09:20 rn 07/17 07:07 Order name: LFT's; Complete Time: 09:20 rn 07/17 07:07 Order name: Troponin HS; Complete Time: 09:20 rn 07/17 07:07 Order name: Lipase; Complete Time: 09:20 rn 07/17 07:07 Order name: Test, Urine; Complete Time: 09:20 rn 07/17 07:07 Order name: Urinalysis w/ reflexes; Complete Time: 09:20 rn 07/17 07:07 Order name: XRAY Chest (1 view); Complete Time: 07:47 rn 07/17 07:07 Order name: CT Abd/Pelvis - IV Contrast Only; Complete Time: 09:20 rn 07/17 09:21 Order name: US Abdomen Limited; Complete Time: 09:59 rn 07/17 07:07 Order name: EKG - Nurse/Tech; Complete Time: 08:40 rn 07/17 07:07 Order name: IV Saline Lock; Complete Time: 08:40 rn 12 07:07 Order name: Labs collected and sent; Complete Time: 07:26 rn 07/17 07:07 Order name: O2 Per Protocol; Complete Time: 07:26 rn 07/17 07:07 Order name: O2 Sat Monitoring; Complete Time: 07:26 rn Administered Medications: 07:19 Drug: HYDROcodone-acetaminophen PO 5 mg-325 mg 1 tabs PO once Route: PO; db 10:42 Follow up: Response: No adverse reaction db 07:19 Drug: Ibuprofen PO 800 mg PO once Route: PO; db 10:42 Follow up: Response: No adverse reaction db 08:25 Drug: ALPRAZolam PO Tablet 0.5 mg PO once Route: PO; db 10:42 Follow up: Response: No adverse reaction db Disposition Summary: 07/17/24 10:02 Discharge Ordered Notes: Location: Home rn Problem: new rn Symptoms: have improved rn Condition: Stable rn Diagnosis - Back pain rn - Anxiety disorder, unspecified rn - Fatty (change of) liver, not elsewhere classified rn Followup: rn - With: Private Physician - When: As needed - Reason: Recheck today's complaints, Re-evaluation by your physician Discharge Instructions: - Discharge Summary Sheet rn - Acute Back Pain, Adult rn - Fatty Liver Disease rn - Generalized Anxiety Disorder, Adult rn Forms: - Medication Reconciliation Form rn - Antibiotic rn correctional - Prescription Opioid Use rn - Patient Portal Instructions rn - Leadership Thank You Letter rn Prescriptions: - Cyclobenzaprine 10 mg Oral tablet - take 1 tablet ORAL route 1-2 times daily As needed; 10 tablet; Refills: 0, rn Product Selection Permitted Signatures: Dispatcher [place] EDOH Kam Prajapati MD MD rn Benton, Danielle RN RN yKra Bacon RN RN br2 Corrections: (The following items were deleted from the chart) 07:07 07:07 BASIC METABOLIC PANEL+C.LAB.BRZ ordered. EDMS EDMS 07:07 07:07 CBC+H.LAB.BRZ ordered. EDMS EDMS 07:07 07:07 HEPATIC FUNCTION+C.LAB.BRZ ordered. EDMS EDMS 07:07 07:07 Troponin High Sensitivity+C.LAB.BRZ ordered. EDMS EDMS 07:08 07:07 LIPASE+C.LAB.BRZ ordered. EDMS EDMS 07:08 07:07 Test, Urine+UC.LAB.BRZ ordered. EDMS EDMS 07:08 07:07 Urinalysis+U.LAB.BRZ ordered. EDMS EDMS 07:08 07:08 Chest Single View+RAD.RAD.BRZ ordered. EDMS EDMS 07:08 07:08 Abdomen Pelvis W Con+CT.RAD.BRZ ordered. EDMS EDMS
[2024-07-17 11:09] VITALS: TEMP 97.2
[2024-07-17 11:11] VITALS: BP 171/91; O2SAT 99
--- NOTE | 2024-07-19 14:48 | EKG ---
Test Date: 2024-07-17 Test Time: 08:32:13 Chamber Worker: MYRNA MEASUREMENT RESULTS: Intervals: Rate: 94 HI: 138 QRSD: 76 QT: 356 QTc: 445 [place]: P: 41 HI: 138 QRS: 44 T: 44 INTERPRETIVE STATEMENTS: Normal sinus rhythm Normal ECG Compared to ECG 12/13/2015 23:57:02 No significant changes Electronically Signed On 07-19-24 14:42:55 CDT by Damon Lawton
== END 2024-07-17 10:59 | disposition home or self-care (01) ==
LOC: ER 06:03
DX: M54.9 Dorsalgia, unspecified (principal); F41.9 Anxiety disorder, unspecified; K76.0 Fatty (change of) liver, not elsewhere classified
CPT/HCPCS: 36415; 71045; 74177; 76705; 80048; 80076; 81001; 81025; 83690; 84484; 85025; 93005; 99284; Q9967